=== PATIENT | female | born 1955 | race Caucasian/White ===

== ENCOUNTER → 2023-04-23 13:23 | Outpatient (BNVA) | payer MEDICARE, MEDICAID, SELFPAY | PROVIDERS: Family Provider Family Medicine; PCP Nurse Practitioner Family; Visit Provider Nurse Practitioner | DX: I10 Essential (primary) hypertension (principal); E03.9 Hypothyroidism, unspecified; F41.1 Generalized anxiety disorder; Z79.899 Other long term (current) drug therapy; F40.01 Agoraphobia with panic disorder | CPT/HCPCS: 80053; 80061; 83036; 84443; 85025 ==

== ENCOUNTER → 2023-08-28 10:16 | Outpatient (BNVA) | payer MEDICARE, MEDICAID, SELFPAY ==
[2023-06-09 06:55] VITALS: BP 127/71; BMI 22.7
== END ==
PROVIDERS: Family Provider Family Medicine; PCP Nurse Practitioner; Visit Provider Nurse Practitioner
DX: F41.1 Generalized anxiety disorder (principal); E03.9 Hypothyroidism, unspecified; M77.8 Other enthesopathies, not elsewhere classified; Z79.899 Other long term (current) drug therapy
CPT/HCPCS: 84436; 84443; 84481

== ENCOUNTER → 2024-04-28 10:56 | Outpatient (BNVA) | payer MEDICARE, MEDICAID, SELFPAY ==
[2023-06-09 06:55] VITALS: BP 127/71; BMI 22.7
== END ==
PROVIDERS: Family Provider Family Medicine; PCP Registered Nurse; Referring Provider Nurse Practitioner; Visit Provider Internal Medicine
DX: E03.9 Hypothyroidism, unspecified (principal); L65.9 Nonscarring hair loss, unspecified
CPT/HCPCS: 17000; 17110; 36415; 84439; 84443; 99203; 99204

== ENCOUNTER → 2024-06-10 10:28 | Outpatient (BNVA) | payer MEDICARE, MEDICAID, SELFPAY ==
[2024-06-04 08:45] VITALS: BP 127/71; BMI 22.7
== END ==
PROVIDERS: PCP Registered Nurse; Referring Provider Psychiatry & Neurology Psychiatry; Visit Provider Psychiatry & Neurology Psychiatry
DX: Z79.899 Other long term (current) drug therapy (principal)
CPT/HCPCS: 80061; 83036

== ENCOUNTER → 2024-12-14 11:54 | Outpatient (BNVA) | payer MEDICARE, MEDICAID, SELFPAY ==
[2024-06-16 14:07] VITALS: BP 134/85; BMI 23.2
== END ==
PROVIDERS: PCP Registered Nurse; Visit Provider Internal Medicine
DX: E03.9 Hypothyroidism, unspecified (principal); L65.9 Nonscarring hair loss, unspecified; F41.1 Generalized anxiety disorder
CPT/HCPCS: 99214